=== PATIENT | female | born 1970 | race Caucasian/White ===

== ENCOUNTER 2018-09-29 16:18 | Emergency (ER) | payer OTHER, BC ==
[~2018-09-29] VITALS: Ht 160 cm; Wt 88.0 kg
[2018-09-29 16:18] VITALS: BP 172/87
[~2018-09-29 16:18] MED LIST: BACTRIM DS 8001 TA1 PO; VICODIN ES 7501 TAB PO
[2018-09-29] MEDS ORDERED: CHLORZOXAZONE500 M2 PO (16:38)
[2018-09-29] MEDS ORDERED: NAPROSYN500 MG PO (16:38)
== END 2018-09-29 18:04 ==
LOC: ED 16:18
DX: S39.012A Strain of muscle, fascia and tendon of lower back, initial encounter (principal); M54.6 Pain in thoracic spine; R03.0 Elevated blood-pressure reading, without diagnosis of hypertension; V89.2XXA Person injured in unspecified motor-vehicle accident, traffic, initial encounter; Y93.89 Activity, other specified; Y92.89 Other specified places as the place of occurrence of the external cause; Y99.8 Other external cause status

== ENCOUNTER → 2019-05-20 | Outpatient (CLI) | payer BC ==
[~2019-05-20] MED LIST changes: +CHLORZOXAZONE500 M2 PO; +GLUCOPHAGE1000 MG PO; +NAPROSYN500 MG PO; +ZESTRIL20 MG PO
--- NOTE | ~2019-05-20 | ST ---
[place], [place] EXERCISE STRESS TEST REPORT [id number] UNIT #: [id number] ROOM: DOCTOR: FAVIOLA MYLES MD BIRTHDATE: [birth year] DOS: 05/20/2019 EXERCISE STRESS TEST REASON FOR TESTING: Atypical chest pain. Baseline EKG, normal sinus rhythm, normal EKG. DESCRIPTION OF PROCEDURE: After informed consent was obtained, the patient walked for 7 minutes and 0 seconds on a full Hussain protocol stress test and test was stopped for fatigue. The patient achieved a maximum heart rate of 160, which represented 92% of maximum predicted heart rate at a workload of 7 mets. There were no changes on the exercise EKG. The patient experienced no chest pain. Alonso treadmill score was 7, consistent with a low risk cardiovascular events. There was an appropriate blood pressure and heart rate response to exercise and recovery. Average functional capacity. No prior tests available for comparison. Faviola Myles MD CM:STRESS:EXERCISE STRESS TEST REPORT [id number] FAVIOLA MYLES MD
--- NOTE | 2019-05-20 10:25 | NUR ---
INFORMED CONSENT OBTAINED FOR AN EXERCISE STRESS TEST WITH DR MYLES. RESTING EKG NSR, WITH A HT RT OF 66 AND A BP OF 120/64 IN A SUPINE POSITION AND A HT RT OF 70, WITH A BP OF 118/74 IN THE STANDING POSITION. PT COMPLETED 7:00 MINUTES OF A AMAN PROTOCOL WITH COMPLETION OF 1:00 MINUTE INTO STAGE III AT 3.4 MPH AND 14% GRADE. REACHED A PEAK HT RT OF 160 WHICH IS 92% OF PREDICTED MAX WITH A PEAK BP OF 180/78. TEST TERMINATED DUE TO FATIGUE. DENIED CHEST PAIN. HAS A GOOD EXERCISE TOLERANCE. LAST RECOVERY HT RT OF 88, WITH A BP OF 132/82. DR. MYLES SPOKE WITH PATIENT IN REGARDS TO TESTING. PT DISCHARGED HOME IN STABLE CONDITION.
== END | disposition home or self-care (01) ==
LOC: CARD 05-18 09:30
DX: I20.8 Other forms of angina pectoris (principal); R07.9 Chest pain, unspecified; E11.9 Type 2 diabetes mellitus without complications

== ENCOUNTER → 2019-06-08 | Outpatient (CLI) | payer BC | END | disposition home or self-care (01) | LOC: CARD 00:05 | DX: I20.8 Other forms of angina pectoris (principal) ==

== ENCOUNTER → 2022-06-22 | Outpatient (CLI) | payer BC ==
[~2022-06-22] MED LIST changes: +ASPIRIN ADULT L81 M1 PO; +BUSPAR5 MG PO; +LIPITOR20 MG PO; +TOPROL XL25 MG PO; +VITAMIN D250 MCG PO
== END ==
LOC: CARD 00:50
PROVIDERS: ATTEND Internal Medicine
DX: R07.9 Chest pain, unspecified (principal); I10 Essential (primary) hypertension; E11.65 Type 2 diabetes mellitus with hyperglycemia

== ENCOUNTER → 2022-07-04 | Outpatient (CLI) | payer BC | END | disposition home or self-care (01) | LOC: CARD 07:30 | PROVIDERS: ATTEND Internal Medicine | DX: I35.8 Other nonrheumatic aortic valve disorders (principal); I10 Essential (primary) hypertension ==

== ENCOUNTER → 2025-05-28 | Outpatient (CLI) | payer BC | END | disposition home or self-care (01) | LOC: MRI 05-14 08:00 | PROVIDERS: ATTEND Internal Medicine | DX: R20.2 Paresthesia of skin (principal); R29.810 Facial weakness ==